=== PATIENT | male | born 1965 | race Caucasian/White ===

== ENCOUNTER → 2016-10-08 | Day surgery (SDC) | payer OTHER | LOC: OPS 07:51 | PROC: 0YU50JZ Supplement Right Inguinal Region with Synthetic Substitute, Open Approach (ICD-10-PCS; principal; 2016-10-08) | DX: K40.90 Unilateral inguinal hernia, without obstruction or gangrene, not specified as recurrent (principal); D17.6 Benign lipomatous neoplasm of spermatic cord; I10 Essential (primary) hypertension; R05 Cough; J44.9 Chronic obstructive pulmonary disease, unspecified; F17.210 Nicotine dependence, cigarettes, uncomplicated; K21.9 Gastro-esophageal reflux disease without esophagitis; R29.91 Unspecified symptoms and signs involving the musculoskeletal system; M54.10 Radiculopathy, site unspecified; Z86.69 Personal history of other diseases of the nervous system and sense organs; Z82.49 Family history of ischemic heart disease and other diseases of the circulatory system; Z82.79 Family history of other congenital malformations, deformations and chromosomal abnormalities; M54.9 Dorsalgia, unspecified; Z88.1 Allergy status to other antibiotic agents; Z79.899 Other long term (current) drug therapy; Z79.1 Long term (current) use of non-steroidal anti-inflammatories (NSAID) | CPT/HCPCS: 93005; 94664; 99070; C1781; J2704; J3010 ==